=== PATIENT | female | born 1975 | race Two or more races ===

== ENCOUNTER 2022-05-09 07:59 | Emergency (ER) | payer MEDICAID ==
[~2022-05-09] VITALS: Ht 165.1 cm; Wt 150.0 kg
[2022-05-09] MEDS ORDERED: TRAMADOL 50MG TABLET PO ONE (08:45)
[2022-05-09] MEDS ORDERED: CLONIDINE 0.2MG TABLET PO ONE (08:45)
[2022-05-09 10:00] LABS: CHLORIDE 100 mEq/L (98-107)
[2022-05-09 10:21] LABS: BASOPHILS % 0.5 % (0.0-2.0); EOSINOPHILS % 1.3 % (0.0-5.0); HEMATOCRIT. 35.8 % (36.0-48.0); HEMOGLOBIN. 11.4 g/dL (12.0-16.0); LYMPHOCYTES % 28.6 % (20.0-50.0); MEAN CORPUSCULAR HEMOGLOBIN 21.3 pg (28.0-32.0); MEAN CORPUSCULAR VOLUME 66.9 fL (81.0-99.0); MEAN PLATELET VOLUME 7.8 fl (7.4-10.4); MONOCYTES % 6.1 % (2.0-8.0); NEUTROPHILS % 63.5 % (40.0-76.0); PLATELET 367 x1000/uL (130-400); RED BLOOD CELL COUNT 5.35 mill/uL (4.2-5.4); RED CELL DISTRIBUTION WIDTH 17.3 % (11.6-14.6)
[2022-05-09 11:07] LABS: PLATELET ESTIMATE NORMAL
[2022-05-09 12:15] VITALS: BP 120/89
[2022-05-09] MEDS ORDERED: BENA-8 MT (12:23)
[2022-05-09] MEDS ORDERED: AMLO10TA80 MT (12:23)
[2022-05-09] MEDS ORDERED: HYDR25TA MT (12:23)
== END 2022-05-09 12:40 | disposition home or self-care (01) ==
LOC: ER 07:59
DX: I16.0 Hypertensive urgency (principal); F12.10 Cannabis abuse, uncomplicated; J45.909 Unspecified asthma, uncomplicated; J44.1 Chronic obstructive pulmonary disease with (acute) exacerbation; I10 Essential (primary) hypertension; Z91.14 Patient's other noncompliance with medication regimen; Z98.890 Other specified postprocedural states
CPT/HCPCS: 36415; 80048; 82962; 84484; 85025; 99283

== ENCOUNTER 2022-09-08 07:21 | Emergency (ER) | payer MEDICAID ==
[~2022-09-08] VITALS: Ht 167.6 cm; Wt 109.0 kg
[~2022-09-08 07:21] MED LIST: AMLO10TA80 MT; AMLO2.5T45 MT; HYDR-4009 MT; HYDR-4135 MT; HYDR25TA MT; IBUP-2029 MT; P20 MT
[2022-09-08 07:33] VITALS: BP 143/92
[2022-09-08] MEDS ORDERED: MORPHINE SULFATE 4 MG/ML CPJ (NOT FOR IM USE) IV STA (07:58)
[2022-09-08 08:23] LABS: CLARITY URINE CLEAR (CLEAR); COLOR URINE YELLOW (YELLOW); KETONES URINE NEGATIVE (NEGATIVE); LEUKOCYTE ESTERASE URINE NEGATIVE (NEGATIVE); NITRITE URINE NEGATIVE (NEGATIVE); OCCULT BLOOD URINE NEGATIVE (NEGATIVE); PROTEIN URINE NEGATIVE (NEGATIVE); SPECIFIC GRAVITY URINE 1.018 (1.005-1.030)
[2022-09-08 09:05] LABS: BASOPHILS % 0.4 % (0.0-2.0); EOSINOPHILS % 1.7 % (0.0-5.0); HEMATOCRIT. 33.2 % (36.0-48.0); HEMOGLOBIN. 10.7 g/dL (12.0-16.0); LYMPHOCYTES % 24.5 % (20.0-50.0); MEAN CORPUSCULAR HEMOGLOBIN 22.1 pg (28.0-32.0); MEAN CORPUSCULAR VOLUME 68.7 fL (81.0-99.0); MEAN PLATELET VOLUME 6.8 fl (7.4-10.4); MONOCYTES % 5.7 % (2.0-8.0); NEUTROPHILS % 67.7 % (40.0-76.0); PLATELET 435 x1000/uL (130-400); RED BLOOD CELL COUNT 4.83 mill/uL (4.2-5.4); RED CELL DISTRIBUTION WIDTH 16.5 % (11.6-14.6)
[2022-09-08 09:11] LABS: CHLORIDE 107 mEq/L (98-107)
[2022-09-08 09:24] LABS: PLATELET ESTIMATE SLIGHTLY INCREASED
[2022-09-08 09:29] LABS: HCG SCREEN NEGATIVE
[2022-09-08] MEDS ORDERED: DOCU-138 PO (09:45)
[2022-09-08] MEDS ORDERED: OXYC-100 MT (09:45)
== END 2022-09-08 10:12 | disposition home or self-care (01) ==
LOC: ER 07:21
DX: K80.50 Calculus of bile duct without cholangitis or cholecystitis without obstruction (principal); D50.9 Iron deficiency anemia, unspecified; I10 Essential (primary) hypertension; J44.1 Chronic obstructive pulmonary disease with (acute) exacerbation; Z98.890 Other specified postprocedural states
CPT/HCPCS: 36415; 76705; 80053; 81003; 81025; 83690; 84703; 85025; 96374; 99285; J2270

== ENCOUNTER 2022-12-14 08:49 | Emergency (ER) | payer MEDICAID ==
[~2022-12-14] VITALS: Ht 165.1 cm; Wt 150.0 kg
[~2022-12-14 08:49] MED LIST changes: +DOCU-138 PO; +OXYC-100 MT
[2022-12-14] MEDS ORDERED: HYDROCODONE/ACETAMINOPHEN 5/325MG TABLET PO ONE (10:00)
[2022-12-14 10:05] LABS: CLARITY URINE CLEAR (CLEAR); COLOR URINE YELLOW (YELLOW); KETONES URINE NEGATIVE (NEGATIVE); LEUKOCYTE ESTERASE URINE TRACE (NEGATIVE); NITRITE URINE NEGATIVE (NEGATIVE); OCCULT BLOOD URINE NEGATIVE (NEGATIVE); PH URINE 6.5 (4.5-8.0); PROTEIN URINE NEGATIVE (NEGATIVE); SPECIFIC GRAVITY URINE 1.019 (1.005-1.030); UROBILINOGEN URINE 0.2 E.U./dL (0.2-1.0)
[2022-12-14 10:54] VITALS: BP 170/99
[2022-12-14 11:04] LABS: BASOPHILS % 0.5 % (0.0-2.0); EOSINOPHILS % 1.5 % (0.0-5.0); HEMATOCRIT. 34.5 % (36.0-48.0); HEMOGLOBIN. 10.9 g/dL (12.0-16.0); LYMPHOCYTES % 26.9 % (20.0-50.0); MEAN CORPUSCULAR VOLUME 66.6 fL (81.0-99.0); MEAN PLATELET VOLUME 7.3 fl (7.4-10.4); MONOCYTES % 4.4 % (2.0-8.0); NEUTROPHILS % 66.7 % (40.0-76.0); PLATELET 447 x1000/uL (130-400); RED BLOOD CELL COUNT 5.19 mill/uL (4.2-5.4)
[2022-12-14 11:10] LABS: CHLORIDE 102 mEq/L (98-107)
[2022-12-14] MEDS ORDERED: T3 PO (11:39)
[2022-12-14] MEDS ORDERED: HYDR-4135 MT (11:39)
[2022-12-14] MEDS ORDERED: AMLO10TA80 MT (11:39)
[2022-12-14] MEDS ORDERED: CLONIDINE 0.1MG TABLET PO ONE (11:45)
[2022-12-14 11:50] LABS: HCG SCREEN NEGATIVE
[2022-12-14 11:52] LABS: PLATELET ESTIMATE INCREASED
== END 2022-12-14 12:08 | disposition home or self-care (01) ==
LOC: ER 08:49
DX: M54.50 Low back pain, unspecified (principal); I10 Essential (primary) hypertension; J44.1 Chronic obstructive pulmonary disease with (acute) exacerbation; J45.909 Unspecified asthma, uncomplicated; Z79.899 Other long term (current) drug therapy; Z98.890 Other specified postprocedural states
CPT/HCPCS: 36415; 80053; 81003; 84703; 85025; 93005; 99284